=== PATIENT | female | born 1995 | race African-American/Black ===

== ENCOUNTER 2016-11-19 11:22 | Emergency (ER) | payer BC ==
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
== END 2016-11-19 12:00 | disposition home or self-care (01) ==
LOC: CFTX 11:22
DX: S16.1XXA Strain of muscle, fascia and tendon at neck level, initial encounter (principal); S40.011A Contusion of right shoulder, initial encounter; V49.40XA Driver injured in collision with unspecified motor vehicles in traffic accident, initial encounter
CPT/HCPCS: 72040; 73030; 73130; 99284